=== PATIENT | female | born 1975 ===

== ENCOUNTER 2017-08-25 07:51 | Emergency (ER) | payer MEDICAID ==
[2017-08-25 08:08] VITALS: RESP 18; TEMP 97.7; BMI 46.7
[2017-08-25] MEDS ORDERED: Oxycodone/Acetaminophen 5/325 mg Tab PO STA (08:11)
--- NOTE | 2017-08-25 08:22 | ED PDOC ---
Arrival/HPI - General Chief Complaint: Lower Extremity Problem/Injury Time Seen by Provider: 08/25/17 07:55 Historian: Patient - History of Present Illness Narrative History of Present Illness (Text): 08/25/17 0820 pt p/w + 1 day onset of left lower back pain with pain radiating down her left leg, ending at the ankle; pt states she lifted something heavy 2 days ago but felt ok and went to the gym to do her daily routine yesterday morning when she went back to her car and suddenly felt a lower left back ache/cramp/pain that was initially tolerable; pt went to sleep last night and awoke this morning with severe/excruciating back pain, at most pain is 10/10; pt states she took 2 tabs of tylenol at home but it did not help; pt states mild left lower leg numbness/tingling; pt states no fever/chills/sweats, no cp/sob/palpitations, no abd pain, no n/v, no urinary/bowel changes, no rectal/vaginal numbness/tingling ; pt denied fall/trauma/sick contact, 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 ED for further eval pt states ambulating/and changing positions makes the pain worse pt is here for further eval pt's without other complaints PCP: Dr Chan pt is right hand dominate Time/Duration: 24 hours Symptom Onset: Sudden Symptom Course: Worsening Quality: Aching, Cramping Severity Level: 10, Severe Activities at Onset: Other (movement/changing position) Context: Walking, Exertion, Home Past Medical History - Provider Review Nursing Documentation Reviewed: Yes - Travel History Have you recently traveled outside [place] w/in the past 3 mons?: No - Past History Past History: No Previous - Infectious Disease Hx of Infectious Diseases: None - Tetanus Immunization Tetanus Immunization: Unknown - Reproductive Menopause: No Currently : Unknown (LMP: 1 week ago) - Past Medical History Past Medical History: No Previous - Cardiac Hx Cardiac Disorders: Yes Hx Hypertension: Yes - Pulmonary Hx Respiratory Disorders: No - Neurological Hx Neurological Disorder: No - HEENT Hx HEENT Disorder: No - Renal Hx Renal Disorder: Yes Hx Kidney Stones: Yes - Endocrine/Metabolic Hx Endocrine Disorders: No - Hematological/Oncological Hx Blood Disorders: No - Integumentary Hx Dermatological Disorder: No - Musculoskeletal/Rheumatological Hx Musculoskeletal Disorders: Yes Other/Comment: Sciatica - Gastrointestinal Hx Gastrointestinal Disorders: Yes Hx Fatty Liver Disease: Yes - Genitourinary/Gynecological Hx Genitourinary Disorders: No - Psychiatric Hx Psychophysiologic Disorder: No Hx Substance Use: No - Anesthesia Hx Anesthesia: No Family/Social History - Physician Review Nursing Documentation Reviewed: Yes Family/Social History: No Known Family HX Smoking Status: Never Smoked Hx Alcohol Use: No Hx Substance Use: No Hx Substance Use Treatment: No Allergies/Home Meds Allergies/Adverse Reactions: Allergies NSAIDS (Non-Steroidal Anti-Inflamma Allergy (Verified 08/25/17 08:03) RASH Review of Systems - Review of Systems Constitutional: Normal Eyes: Normal ENT: Normal Respiratory: Normal Cardiovascular: Normal Gastrointestinal: Normal Genitourinary Female: Normal Musculoskeletal: Back Pain Skin: Normal Neurological: Normal Endocrine: Normal Hemo/Lymphatic: Normal Psychiatric: Normal Physical Exam Vital Signs Reviewed: Yes Vital Signs Temp Pulse Resp BP Pulse Ox 08/25/17 10:04 70 18 145/96 H 98 08/25/17 08:05 97.7 F 88 18 122/97 H 98 Temperature: Afebrile Blood Pressure: Hypertensive (elevated DBP) Pulse: Regular Respiratory Rate: Normal Appearance: Positive for: Well-Appearing, Uncomfortable, Other (resting in bed, alert/awake, uncomfortable, mild distress due to back pain, cooperative, GCS = 15, oriented x 3) Pain Distress: Mild Mental Status: Positive for: Alert and Oriented X 3 - Systems Exam Head: Present: Atraumatic, Normocephalic Pupils: Present: PERRL, Other (visual field intact b/l, no nystagmus, no photophobia) Extroacular Muscles: Present: EOMI Conjunctiva: Present: Normal Ears: Present: Normal Mouth: Present: Moist Mucous Membranes, Normal Teeth, Other (uvula/tongue are midline, no exudate/lesions, no drooling/stridor) Pharnyx: Present: Normal Nose (External): Present: Atraumatic Nose (Internal): Present: Normal Inspection Neck: Present: Normal Range of Motion, Trachea Midline, Other (no step off, no midline tenderness). No: MIDLINE TENDERNESS Respiratory/Chest: Present: Clear to Auscultation, Good Air Exchange, Other ( CTA b/l, no w/r/r, no accessory muscle use noted). No: Respiratory Distress, Accessory Muscle Use Cardiovascular: Present: Regular Rate and Rhythm, Normal S1, S2. No: Murmurs Abdomen: Present: Normal Bowel Sounds, Other (well nourished/obese female, no focal tenderness, no zhang's sign, no mcburney's point tenderness) Back: Present: Normal Inspection, Pain with Leg Raise, Other (+ mild left lower paralumbar tenderness, no gross deformities noted, no midline tenderness/step off). No: CVA Tenderness, Midline Tenderness Upper Extremity: Present: Normal Inspection, Normal ROM, NORMAL PULSES, Neurovascularly Intact, Capillary Refill < 2s. No: Edema, Deformity Lower Extremity: Present: Normal Inspection, NORMAL PULSES, Neurovascularly Intact, Other (+ LEFT STRAIGHT LEG RAISING at 20-25 degrees; no alex's sign noted, no edema/swelling noted; no gross deformities noted; strength 5/5 grossly intact b/l; reflex +2/2 b/l; intact ROM) Neurological: Present: GCS=15, CN II-XII Intact, Speech Normal, Normal Sensory Function, Normal Cerebellar Funct Skin: Present: Warm, Normal Color, Other (cap refill < 1sec, no ulcerations, no petechiae, no rashes) Psychiatric: Present: Alert, Oriented x 3 Medical Decision Making ED Course and Treatment: 08/25/17 08:20 Impression: left leg pain i have consider all the differential diagnosis regarding pt's chief medical complaints/clinical findings, including but are not limited to: Left leg pain, atraumatic A/P: left leg pain - xray - pain control - suportive care - observe 08/25/17 0950 pt continues to have the same level of lower back pain, pt states her pain level is at 10/10 after the pain medications were given 08/25/17 10:50 pt felt much improved after the 2nd round of pain medications pt is able to move all limbs with ease pt is made aware of her medical results pt is encouraged min weight bearing and avoid prolonged ambulation pt will f/u as directed pt will be discharged home Re-evaluation Time: 09:50 Reassessment Condition: Unchanged - RAD Interpretation Narrative RAD Interpretations (Text): 08/25/17 10:03 slight compression noted to T11-12; no subluxation noted Physician Impression : Abnormal Written by Obey Quintero MD on 08/25/2017 09:53:36 Radiology Orders: 08/25/17 08:12 LS SPINE AP/LAT [RAD] Stat [employer] Software Developer: ED Physician - Medication Orders Current Medication Orders: Discontinued Medications Diazepam (Valium) 5 mg PO ONCE ONE PRN Reason: Protocol Stop: 08/25/17 08:11 Last Admin: 08/25/17 08:59 Dose: 5 mg Diazepam (Valium) 5 mg PO ONCE ONE PRN Reason: Protocol Stop: 08/25/17 09:56 Last Admin: 08/25/17 10:04 Dose: 5 mg Hydromorphone HCl (Dilaudid) 1 mg IM ONCE ONE Stop: 08/25/17 09:56 Last Admin: 08/25/17 10:03 Dose: 1 mg MAR Pain Assessment Document 08/25/17 10:03 SZA (Rec: 08/25/17 10:04 SZA [id number]) Pain Reassessment Is this a pain reassessment? No Sleep Is patient sleeping during reassessment? No Presence of Pain Presence of Pain Yes Pain Scale Used Pain Scale Used Numeric Description Description Intermittent Intensity of Pain at present 8 IM Administration Charges Document 08/25/17 10:03 SZA (Rec: 08/25/17 10:04 SZA [id number]) Charges for Administration # of IM Administrations 1 Ketorolac Tromethamine (Toradol) 15 mg IM STAT STA Stop: 08/25/17 08:11 Last Admin: 08/25/17 08:58 Dose: 15 mg MAR Pain Assessment Document 08/25/17 08:58 SZA (Rec: 08/25/17 08:59 SZA [id number]) Pain Reassessment Is this a pain reassessment? No Sleep Is patient sleeping during reassessment? No Presence of Pain Presence of Pain Yes Pain Scale Used Pain Scale Used Numeric Description Description Intermittent Intensity of Pain at present 10 IM Administration Charges Document 08/25/17 08:58 SZA (Rec: 08/25/17 08:59 SZA [id number]) Injection Site MAR Injection Site Left Deltoid Charges for Administration # of IM Administrations 1 Oxycodone/Acetaminophen (Percocet 5/325 Mg Tab) 1 tab PO STAT STA Stop: 08/25/17 08:12 Last Admin: 08/25/17 08:59 Dose: 1 tab MAR Pain Assessment Document 08/25/17 08:59 SOHAN (Rec: 08/25/17 08:59 SOHAN [id number]) Pain Reassessment Is this a pain reassessment? No Sleep Is patient sleeping during reassessment? No Presence of Pain Presence of Pain Yes Disposition/Present on Arrival - Present on Arrival Any Indicators Present on Arrival: No History of DVT/PE: No History of Uncontrolled Diabetes: No Urinary Catheter: No History of Decub. Ulcer: No History Surgical Site Infection Following: None - Disposition Have Diagnosis and Disposition been Completed?: Yes Diagnosis: Lower back pain, Sciatica of left side Disposition: HOME/ ROUTINE Disposition Time: 10:51 Patient Plan: Discharge Condition: STABLE Discharge Instructions (ExitCare): Sciatica, Low Back Pain in Adults, Sciatica Exercises Print Language: URUGUAYAN Additional Instructions: Make sure to see your doctor in 1-2 days DRINK PLENTY OF FLUIDS take your medications as prescribed AVOID heavy lifting AVOID prolonged standing/walking RETURN TO ED IF worse pain, cant breath, persistent vomiting, high fever >101- 102 for hours, altered behavior, slurr speech, facial changes, focal weakness ( arm/leg or both), unable to urinate, rectal/vaginal numbness/tingling, heavy/ persistent bleeding, passing out, chest pain, or other medical emergencies Prescriptions: diaZEpam [Valium] 5 mg PO TID PRN #15 tab PRN Reason: Muscle Spasm Naproxen [Naprosyn] 500 mg PO BID PRN #20 tab PRN Reason: Pain, Mild (1-3) oxyCODONE/Acetaminophen [Percocet 5/325 mg Tab] 1 tab PO QID PRN #15 tab PRN Reason: Pain, Moderate (4-7) Referrals: Colton Chan MD [Primary Care Provider] - Follow up with primary Eric Birmingham MD [Staff Provider] - Follow up with primary Forms: [employer] (Serbian), WORK NOTE
[2017-08-25] MEDS ORDERED: HYDROmorphone 1 mg/ml ISec IM ONE (09:55)
[2017-08-25 11:05] VITALS: BP 131/87; PULSE 75; O2SAT 95
--- NOTE | 2017-08-25 11:31 | RAD ---
Radiographs of the lumbar spine AP and lateral radiographs of the lumbar spine were obtained. Comparison: MRI of the lumbar spine from 04/18/2012 Findings: There is degenerative 5 mm anterior listhesis of L5 on S1. There is normal lumbar lordosis. There is no acute fracture, spondylolysis or spondylolisthesis. There is diffuse bone demineralization. There are age indeterminate but likely chronic mild compression deformities in the T11 and T12 vertebral bodies. There is multilevel degenerative disc disease with anterior spurring, reduced disc heights and multilevel facet arthropathy, worse at L5-S1. There are no pathologic soft tissue calcifications. Both sacroiliac joints are normal. Impression: No acute fracture in the lumbar spine. Age indeterminate mild osteoporotic compression deformities in the T11 and T12 vertebral bodies. Multilevel degenerative disc disease, worse at L5-S1.
== END 2017-08-25 11:43 | disposition home or self-care (01) ==
LOC: ED 07:51
DX: M54.42 Lumbago with sciatica, left side (principal); I10 Essential (primary) hypertension
CPT/HCPCS: 72100; 96372; 99285; J1170; J1885

== ENCOUNTER 2018-09-05 18:35 | Observation (INO) | payer MEDICAID ==
--- NOTE | 2018-09-05 19:00 | ED PDOC ---
Arrival/HPI - General Chief Complaint: Abnormal Labs Time Seen by Provider: 09/05/18 18:51 Historian: Patient - History of Present Illness Narrative History of Present Illness (Text): 09/05/18 18:57 43 y/o female, pmh including Menorrhagia, allergic to nsaid, send in by pmd Dr. Chan for symptomatic anemia. Pt. stated that she is at the end of her period, been having heavy menstrual bleeding for the past 2 weeks up to day, feeling fatigue and tired, no abdominal pain, no black color stool, no nausea/vomiting/diarrhea, no black color stool, no other medical or psychological complaints. Past Medical History - Provider Review Nursing Documentation Reviewed: Yes - Past History Past History: No Previous - Infectious Disease Hx of Infectious Diseases: None - Tetanus Immunization Tetanus Immunization: Unknown - Past Medical History Past Medical History: No Previous - Cardiac Hx Hypertension: Yes - Pulmonary Hx Respiratory Disorders: No - Neurological Hx Neurological Disorder: No - HEENT Hx HEENT Disorder: No - Renal Hx Renal Disorder: Yes Hx Kidney Stones: Yes - Endocrine/Metabolic Hx Endocrine Disorders: No - Hematological/Oncological Hx Anemia: Yes - Integumentary Hx Dermatological Disorder: No - Musculoskeletal/Rheumatological Hx Musculoskeletal Disorders: Yes Other/Comment: Sciatica - Gastrointestinal Hx Gastrointestinal Disorders: Yes Hx Fatty Liver Disease: Yes - Genitourinary/Gynecological Hx Genitourinary Disorders: No - Psychiatric Hx Psychophysiologic Disorder: No Hx Substance Use: No - Surgical History Hx Tubal Ligation: Yes - Anesthesia Hx Anesthesia: No Family/Social History - Physician Review Nursing Documentation Reviewed: Yes Family/Social History: Unknown Family HX Smoking Status: Never Smoked Hx Alcohol Use: No Hx Substance Use: No Hx Substance Use Treatment: No Allergies/Home Meds Allergies/Adverse Reactions: Allergies NSAIDS (Non-Steroidal Anti-Inflamma Allergy (Verified 09/05/18 18:45) RASH Review of Systems - Review of Systems Constitutional: Fatigue. absent: Fevers Eyes: absent: Vision Changes ENT: absent: Hearing Changes Respiratory: absent: SOB, Cough Cardiovascular: absent: Chest Pain Gastrointestinal: absent: Abdominal Pain, Diarrhea, Nausea, Vomiting Skin: absent: Rash, Pruritis, Skin Lesions Neurological: absent: Headache, Dizziness Psychiatric: absent: Anxiety, Depression, Suicidal Ideation Physical Exam Vital Signs Reviewed: Yes Vital Signs Temp Pulse Resp BP Pulse Ox 09/05/18 18:42 98.5 F 105 H 18 127/75 100 Temperature: Afebrile Blood Pressure: Normal Pulse: Tachycardic Respiratory Rate: Normal Appearance: Positive for: Well-Appearing, Non-Toxic, Comfortable Pain Distress: None Mental Status: Positive for: Alert and Oriented X 3 - Systems Exam Head: Present: Atraumatic, Normocephalic Pupils: Present: PERRL Extroacular Muscles: Present: EOMI Conjunctiva: Present: Normal Mouth: Present: Moist Mucous Membranes Neck: Present: Normal Range of Motion Respiratory/Chest: Present: Clear to Auscultation, Good Air Exchange. No: Respiratory Distress, Accessory Muscle Use Cardiovascular: Present: Regular Rate and Rhythm, Normal S1, S2. 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 No: Occult Blood, Rectal Tenderness, Gross Blood, Melena, Fissures, Nodule/Mass/Lesions Back: Present: Normal Inspection. No: CVA Tenderness, Midline Tenderness, Paraspinal Tenderness, Pain with Leg Raise, Decubitus Ulcer Upper Extremity: Present: Normal Inspection. No: Cyanosis, Edema Lower Extremity: Present: Normal Inspection. No: Edema Neurological: Present: GCS=15, CN II-XII Intact, Speech Normal, Motor Func Grossly Intact, Normal Cerebellar Funct, Memory Normal Skin: Present: Warm, Dry, Pale. No: Rashes Psychiatric: Present: Alert, Oriented x 3, Normal Insight, Normal Concentration Medical Decision Making ED Course and Treatment: 09/05/18 19:01 Anemia vs. GI bleed vs. Dehydration -Labs -Type and Screen -Chest xray -Guaiac -Observe and reassess 09/05/18 19:55 -Guaiac result is negative, yellow/brown color stool -Urine hcg is negative -EKG: ST @ 106 BPM, no ST elevation or depression, no T wave inversion. -Chest xray ER wet read: no active disease -Labs show no acute findings except hgb 5.3 and hct 20.8, 2 units of PRBC ordered with tylenol/benadryl. -UA show +UTI, IV rocephine ordered -I discussed with the labs/radiology result with the patient, she agreed to be transfused and admitted. -Case discussed with Dr. Rivas and the medical affairs specialist night hospitalist, discussed about the labs/radiology result and agreed on the admission/treatment plan. Dr. Rivas will continue the medical care. - Critical Care Critical Care Minutes: 30 minutes Critical Care Time: Unstable Narrative Critical Care (Text): 09/07/18 11:45 Severe anemia with need blood transfusion, tachycardia, will need blood transfusion and admission. - RAD Interpretation Radiology Orders: 09/05/18 18:50 CHEST PORTABLE [RAD] Stat - PA / OCULAR PATHOLOGIST / Resident Statement MD/DO has reviewed & agrees with the documentation as recorded. Disposition/Present on Arrival - Present on Arrival Any Indicators Present on Arrival: No History of DVT/PE: No History of Uncontrolled Diabetes: No Urinary Catheter: No History of Decub. Ulcer: No History Surgical Site Infection Following: None - Disposition Have Diagnosis and Disposition been Completed?: Yes Diagnosis: Symptomatic anemia, Menorrhagia, UTI (urinary tract infection) Disposition: HOSPITALIZED Disposition Time: 19:51 Patient Plan: Admission, Observation, Telemetry Condition: GUARDED
[2018-09-05 19:42] LABS: BASO # 0.07 K/mm3 (0.0-2.0); BASO % 0.6 % (0.0-3.0); EOS # 0.1 (0.0-0.7); EOS % 0.5 % (1.5-5.0); LYMPH # 3.1 (1.2-3.4); LYMPH % 25.6 % (22.0-35.0); MEAN CELL VOLUME 60.5 fl (80.0-105.0); MEAN CORPUSCULAR HEMOGLOBIN 15.4 pg (25.0-35.0); MEAN CORPUSCULAR HGB CONC 25.5 g/dl (31.0-37.0); MEAN PLATELET VOLUME 8.8 fl (7.0-11.0); MONO # 0.9 (0.1-0.6); MONO % 7.7 % (1.0-6.0); RBC 3.44 10^6/uL (3.5-6.1); RED CELL DISTRIBUTION WIDTH 20.6 % (11.5-14.5); URINE BILIRUBIN NEGATIVE (NEGATIVE); URINE BLOOD LARGE (NEGATIVE); URINE GLUCOSE (UA) NEGATIVE (NEGATIVE); URINE LEUKOCYTE ESTERASE SMALL Leu/uL (NEGATIVE); URINE PROTEIN NEGATIVE mg/dL (<30 mg/dL); URINE UROBILINOGEN 0.2 E.U./dL (<1 E.U./dL)
[2018-09-05 19:43] LABS: URINE APPEARANCE CLEAR (CLEAR); URINE COLOR YELLOW (YELLOW)
[2018-09-05 19:47] LABS: HEMOGLOBIN 5.3 g/dL (12.0-16.0)
[2018-09-05 19:48] LABS: ALB/GLOB RATIO 1.1 (1.1-1.8); ALBUMIN 3.9 g/dL (3.0-4.8); ALT/SGPT 10 U/L (7-56); AST/SGOT 21 U/L (14-36); BLOOD UREA NITROGEN 12 mg/dL (7-21); GFR NON-AFRICAN AMERICAN > 60; URINE RBC TNTC /hpf (0-2)
[2018-09-05] MEDS ORDERED: cefTRIAXone 1 gm 1 GM/100 ML BAG IVPB STA (19:51)
[2018-09-05] MEDS ORDERED: DiphenhydrAMINE 50 mg/ml Inj IVP STA (19:52)
--- NOTE | 2018-09-05 20:29 | CP.PCM.HP ---
<Jose AlbertosagartierraBrennon - Last Filed: 09/05/18 21:10> History of Present Illness - History of Present Illness History of Present Illness: PGY1 Medicine History and Physical Exam Note for Dr. Rivas Patient is a 43-year-old F with PMH menorrhagia, nephrolithiasis, tubal ligation 2 years ago, who was sent by PMD (Dr. Chan) for light-headedness and fatigue x1 month. Patient reports that during the last month she has experienced fatigue with walking 1 block or taking any stairs. Per patient, her LMP was August 19, and her symptoms have been exacerbated. Patient reports stated that she is at the end of her period, and has been having heavy menstrual bleeding for the past 2 weeks up to day. Patient says that her periods used to last 3-4 days per month, but since May 2018 her cycles have been lasting 2 weeks consistently. Patient otherwise denies abdominal pain, black stools, nausea/vomiting/diarrhea, hematemesis, dysuria, hematuria, urgency, fever, and/or chills. Of note patient's son is at bedside and has some training as a nurse. Per patient's son, he assumed the patient was suffering from iron-deficiency anemia, and gave the patient [id number] iron pills as a supplement. PMH: Menorrhagia, nephrolithiasis PSH: Tubal ligation 2 years ago Family Hx: Unknown Social Hx: Patient denies ETOH, tobacco, and/or recreational drugs Meds: Feosol 325mg PO daily, Phentermine HCl 37.5mg PO Allergies: NSAIDS PMD: Dr. Chan Present on Admission - Present on Admission Any Indicators Present on Admission: No History of DVT/PE: No History of Uncontrolled Diabetes: No Urinary Catheter: No Decubitus Ulcer Present: No Review of Systems - Review of Systems All systems: reviewed and no additional remarkable complaints except (as per HPI) Past Patient History - Infectious Disease Hx of Infectious Diseases: None - Tetanus Immunizations Tetanus Immunization: Unknown - Past Medical History & Family History Past Medical History?: No - Past Social History Smoking Status: Never Smoked - CARDIAC Hx Hypertension: Yes - PULMONARY Hx Respiratory Disorders: No - NEUROLOGICAL Hx Neurological Disorder: No - HEENT Hx HEENT Problems: No - RENAL Hx Chronic Kidney Disease: Yes Hx Kidney Stones: Yes - ENDOCRINE/METABOLIC Hx Endocrine Disorders: No - HEMATOLOGICAL/ONCOLOGICAL Hx Anemia: Yes - INTEGUMENTARY Hx Dermatological Problems: No - MUSCULOSKELETAL/RHEUMATOLOGICAL Hx Musculoskeletal Disorders: Yes Other/Comment: Sciatica - GASTROINTESTINAL Hx Gastrointestinal Disorders: Yes Hx Fatty Liver Disease: Yes - GENITOURINARY/GYNECOLOGICAL Hx Genitourinary Disorders: No - PSYCHIATRIC Hx Psychophysiologic Disorder: No Hx Substance Use: No - SURGICAL HISTORY Hx Tubal Ligation: Yes - ANESTHESIA Hx Anesthesia: No Meds Allergies/Adverse Reactions: Allergies Allergy/AdvReac Type Severity Reaction Status Date / Time NSAIDS (Non-Steroidal Allergy RASH Verified 09/05/18 18:45 Anti-Inflamma Physical Exam - Constitutional Appears: Non-toxic, No Acute Distress - Head Exam Head Exam: ATRAUMATIC, NORMAL INSPECTION, NORMOCEPHALIC - Eye Exam Eye Exam: EOMI, Normal appearance Additional comments: pale conjunctiva bilaterally - ENT Exam ENT Exam: Mucous Membranes Moist, Normal Exam - Neck Exam Neck exam: Positive for: Normal Inspection - Respiratory Exam Respiratory Exam: Clear to Auscultation Bilateral, NORMAL BREATHING PATTERN. absent: Decreased Breath Sounds, Rhonchi, Wheezes, Respiratory Distress, Stridor - Cardiovascular Exam Cardiovascular Exam: Tachycardia, +S1, +S2. absent: Diastolic murmur, Gallop - GI/Abdominal Exam GI & Abdominal Exam: Normal Bowel Sounds, Soft. absent: Distended, Firm, Guarding, Organomegaly, Rebound, Rigid, Tenderness - Extremities Exam Extremities exam: Positive for: full ROM, normal capillary refill, normal inspection, pedal pulses present - Back Exam Back exam: NORMAL INSPECTION - Neurological Exam Neurological exam: Alert, CN II-XII Intact, Oriented x3 - Psychiatric Exam Psychiatric exam: Normal Affect, Normal Mood - Skin Skin Exam: Dry, Intact, Pallor, Warm Results - Vital Signs Recent Vital Signs: Last Vital Signs Temp 98.5 F 09/05/18 18:42 Pulse 105 H 09/05/18 18:42 Resp 18 09/05/18 18:42 BP 127/75 09/05/18 18:42 Pulse Ox 100 09/05/18 18:42 - Labs Result Diagrams: 09/05/18 19:30 09/05/18 19:30 Labs: Laboratory Results - last 24 hr 09/05/18 09/05/18 09/05/18 19:30 19:30 19:30 WBC 12.0 H RBC 3.44 L Hgb 5.3 L* Hct 20.8 L* MCV 60.5 L MCH 15.4 L MCHC 25.5 L RDW 20.6 H Plt Count 447 MPV 8.8 Neut % (Auto) 65.6 Lymph % (Auto) 25.6 [place] % (Auto) 7.7 H Eos % (Auto) 0.5 L Baso % (Auto) 0.6 Lymph # (Auto) 3.1 [place] # (Auto) 0.9 H Eos # (Auto) 0.1 Baso # (Auto) 0.07 Absolute Neuts (auto) 7.86 H Sodium 139 Potassium 3.9 Chloride 103 Carbon Dioxide 23 Anion Gap 16 BUN 12 Creatinine 0.9 Est GFR ( Amer) > 60 Est GFR (Non-Af Amer) > 60 Random Glucose 95 Calcium 9.0 Total Bilirubin 0.3 AST 21 ALT 10 Alkaline Phosphatase 88 Total Protein 7.4 Albumin 3.9 Globulin 3.5 Albumin/Globulin Ratio 1.1 Urine Color Urine Appearance Urine pH Ur Specific [place] Urine Protein Urine Glucose (UA) Urine Ketones Urine Blood Urine Nitrate Urine Bilirubin Urine Urobilinogen Ur Leukocyte Esterase Urine RBC Urine WBC Ur Epithelial Cells BBK History Checked No verified bt 09/05/18 19:30 WBC RBC Hgb Hct MCV MCH MCHC RDW Plt Count MPV Neut % (Auto) Lymph % (Auto) [place] % (Auto) Eos % (Auto) Baso % (Auto) Lymph # (Auto) [place] # (Auto) Eos # (Auto) Baso # (Auto) Absolute Neuts (auto) Sodium Potassium Chloride Carbon Dioxide Anion Gap BUN Creatinine Est GFR ( Amer) Est GFR (Non-Af Amer) Random Glucose Calcium Total Bilirubin AST ALT Alkaline Phosphatase Total Protein Albumin Globulin Albumin/Globulin Ratio Urine Color Yellow Urine Appearance Clear Urine pH 6.0 Ur Specific [place] 1.010 Urine Protein Negative Urine Glucose (UA) Negative Urine Ketones Negative Urine Blood Large H Urine Nitrate Positive H Urine Bilirubin Negative Urine Urobilinogen 0.2 Ur Leukocyte Esterase Small H Urine RBC Tntc H Urine WBC 5 - 10 H Ur Epithelial Cells 10 - 12 H BBK History Checked Assessment & Plan - Assessment and Plan (Free Text) Assessment: Patient is a 43-year-old F with PMH menorrhagia, nephrolithiasis, tubal ligation 2 years ago, who was sent by PMD (Dr. Chan) for light-headedness and fatigue x1 month Symptomatic Anemia; microcytic; likely 2/2 iron deficiency anemia - Hgb 5.3, MCV low, RDW high - Type and Screen - Guaiac performed in ED (negative with yellow/brownish stool) - Urine beta Hcg negative - EKG: ST @ 106 BPM, no ST elevation or depression, no T wave inversion. - Chest xray: no active disease - 2 units of PRBC ordered with tylenol/benadryl to be administered prior to transfusion - Admit to remote tele - Repeat CBC once transfusion is completed - Protonix 40mg IVP Q12 - F/U iron studies - Monitor Abnormal Urinalysis in the setting of previous nephrolithiasis - Afebrile - Asymptomatic - IV rocephine given x1 in ED - no further antibiotics indicated at this time PPx: - DVT: SCD - GI: Protonix Discussed with Dr. Rob Dozier PGY1 <Terrell Rivas - Last Filed: 09/05/18 21:50> Results - Vital Signs Recent Vital Signs: Last Vital Signs Temp 98.5 F 09/05/18 18:42 Pulse 105 H 09/05/18 18:42 Resp 18 09/05/18 18:42 BP 127/75 09/05/18 18:42 Pulse Ox 100 09/05/18 18:42 - Labs Result Diagrams: 09/05/18 19:30 09/05/18 19:30 Labs: Laboratory Results - last 24 hr 09/05/18 09/05/18 09/05/18 19:30 19:30 19:30 WBC 12.0 H RBC 3.44 L Hgb 5.3 L* Hct 20.8 L* MCV 60.5 L MCH 15.4 L MCHC 25.5 L RDW 20.6 H Plt Count 447 MPV 8.8 Neut % (Auto) 65.6 Lymph % (Auto) 25.6 [place] % (Auto) 7.7 H Eos % (Auto) 0.5 L Baso % (Auto) 0.6 Lymph # (Auto) 3.1 [place] # (Auto) 0.9 H Eos # (Auto) 0.1 Baso # (Auto) 0.07 Absolute Neuts (auto) 7.86 H Sodium 139 Potassium 3.9 Chloride 103 Carbon Dioxide 23 Anion Gap 16 BUN 12 Creatinine 0.9 Est GFR ( Amer) > 60 Est GFR (Non-Af Amer) > 60 Random Glucose 95 Calcium 9.0 Iron TIBC % Saturation Total Bilirubin 0.3 AST 21 ALT 10 Alkaline Phosphatase 88 Total Protein 7.4 Albumin 3.9 Globulin 3.5 Albumin/Globulin Ratio 1.1 Urine Color Urine Appearance Urine pH Ur Specific [place] Urine Protein Urine Glucose (UA) Urine Ketones Urine Blood Urine Nitrate Urine Bilirubin Urine Urobilinogen Ur Leukocyte Esterase Urine RBC Urine WBC Ur Epithelial Cells Blood Type Cancelled Blood Type Confirm Antibody Screen Cancelled Crossmatch BBK History Checked Cancelled 09/05/18 09/05/18 09/05/18 19:30 19:30 20:00 WBC RBC Hgb Hct MCV MCH MCHC RDW Plt Count MPV Neut % (Auto) Lymph % (Auto) [place] % (Auto) Eos % (Auto) Baso % (Auto) Lymph # (Auto) [place] # (Auto) Eos # (Auto) Baso # (Auto) Absolute Neuts (auto) Sodium Potassium Chloride Carbon Dioxide Anion Gap BUN Creatinine Est GFR ( Amer) Est GFR (Non-Af Amer) Random Glucose Calcium Iron 16 L TIBC 426 % Saturation 4 L Total Bilirubin AST ALT Alkaline Phosphatase Total Protein Albumin Globulin Albumin/Globulin Ratio Urine Color Yellow Urine Appearance Clear Urine pH 6.0 Ur Specific [place] 1.010 Urine Protein Negative Urine Glucose (UA) Negative Urine Ketones Negative Urine Blood Large H Urine Nitrate Positive H Urine Bilirubin Negative Urine Urobilinogen 0.2 Ur Leukocyte Esterase Small H Urine RBC Tntc H Urine WBC 5 - 10 H Ur Epithelial Cells 10 - 12 H Blood Type O POSITIVE Blood Type Confirm Antibody Screen Negative Crossmatch See Detail BBK History Checked No verified bt 09/05/18 20:00 WBC RBC Hgb Hct MCV MCH MCHC RDW Plt Count MPV Neut % (Auto) Lymph % (Auto) [place] % (Auto) Eos % (Auto) Baso % (Auto) Lymph # (Auto) [place] # (Auto) Eos # (Auto) Baso # (Auto) Absolute Neuts (auto) Sodium Potassium Chloride Carbon Dioxide Anion Gap BUN Creatinine Est GFR ( Amer) Est GFR (Non-Af Amer) Random Glucose Calcium Iron TIBC % Saturation Total Bilirubin AST ALT Alkaline Phosphatase Total Protein Albumin Globulin Albumin/Globulin Ratio Urine Color Urine Appearance Urine pH Ur Specific [place] Urine Protein Urine Glucose (UA) Urine Ketones Urine Blood Urine Nitrate Urine Bilirubin Urine Urobilinogen Ur Leukocyte Esterase Urine RBC Urine WBC Ur Epithelial Cells Blood Type Blood Type Confirm O POSITIVE Antibody Screen Crossmatch BBK History Checked Attending/Attestation - Attestation I have personally seen and examined this patient.: Yes I have fully participated in the care of the patient.: Yes I have reviewed all pertinent clinical information: Yes Notes (Text): 09/05/18 21:46 Patient was seen when she was in cubicle 13 in the ER. Medical record was reviewed. Agree with history, physical examination, assessment and plan. Gives history of hypertension but not being on any medication for that,family history of DM and arthritis, GERD, loss of weight from 290 lb to 242 in about a year(Voluntary),palpitation on & of for past month.
[2018-09-05 21:26] LABS: IRON 16 ug/dL (45-180)
[2018-09-05 21:35] LABS: % IRON SATURATION 4 % (20-55); TOTAL IRON BINDING CAPACITY 426 ug/dL (265-497)
[2018-09-06 01:28] VITALS: RESP 18
[2018-09-06 03:31] VITALS: BMI 39.0
[2018-09-06 03:33] VITALS: O2SAT 97
[2018-09-06 06:58] LABS: BASO # 0.05 K/mm3 (0.0-2.0); BASO % 0.5 % (0.0-3.0); EOS # 0.1 (0.0-0.7); EOS % 1.2 % (1.5-5.0); LYMPH # 2.7 (1.2-3.4); MEAN CELL VOLUME 64.7 fl (80.0-105.0); MEAN CORPUSCULAR HEMOGLOBIN 17.8 pg (25.0-35.0); MEAN CORPUSCULAR HGB CONC 27.5 g/dl (31.0-37.0); MONO # 0.7 (0.1-0.6); MONO % 7.6 % (1.0-6.0); RBC 3.77 10^6/uL (3.5-6.1); RED CELL DISTRIBUTION WIDTH 24.7 % (11.5-14.5); WHITE BLOOD COUNT 9.8 10^3/uL (4.5-11.0)
[2018-09-06 07:48] LABS: HEMOGLOBIN 6.7 g/dL (12.0-16.0)
[2018-09-06 08:06] LABS: ALB/GLOB RATIO 1.1 (1.1-1.8); ALBUMIN 3.4 g/dL (3.0-4.8); ALT/SGPT 9 U/L (7-56); AST/SGOT 25 U/L (14-36); BLOOD UREA NITROGEN 10 mg/dL (7-21); CALCIUM 8.7 mg/dL (8.4-10.5); GFR NON-AFRICAN AMERICAN > 60
[2018-09-06 12:06] VITALS: BP 119/67; TEMP 98.9
[2018-09-06 12:36] LABS: FERRITIN 4.1 ng/mL
--- NOTE | 2018-09-06 14:10 | RAD ---
Date of service: 09/05/2018 HISTORY: medical clearance COMPARISON: No prior. TECHNIQUE: 1 view obtained. FINDINGS: LUNGS: Poor inspiration with low lung volumes, crowded bronchovascular markings and minor bibasilar atelectasis. PLEURA: No significant pleural effusion identified, no pneumothorax apparent. CARDIOVASCULAR: No aortic atherosclerotic calcification present. Normal cardiac size. No pulmonary vascular congestion. OSSEOUS STRUCTURES: No significant abnormalities. VISUALIZED UPPER ABDOMEN: Normal. OTHER FINDINGS: None. IMPRESSION: Poor inspiration with low lung volumes, crowded bronchovascular markings and minor bibasilar atelectasis.
[2018-09-06 15:17] VITALS: PULSE 98
--- NOTE | 2018-09-06 16:39 | CP.PCM.DIS ---
<Arnold Moss - Last Filed: 09/06/18 17:05> Provider - Provider Date of Admission: 09/05/18 19:57 Attending physician: Shanita Regalado MD Primary care physician: Dr. Chan Consults: None Time Spent in preparation of Discharge (in minutes): 35 Hospital Course - Lab Results Lab Results: Most Recent Lab Values WBC 9.8 10^3/uL (4.5-11.0) 09/06/18 06:00 RBC 3.77 10^6/uL (3.5-6.1) 09/06/18 06:00 Hgb 8.0 g/dL (12.0-16.0) L 09/06/18 13:30 Hct 27.9 % (36.0-48.0) L 09/06/18 13:30 MCV 64.7 fl (80.0-105.0) L D 09/06/18 06:00 MCH 17.8 pg (25.0-35.0) L 09/06/18 06:00 MCHC 27.5 g/dl (31.0-37.0) L 09/06/18 06:00 RDW 24.7 % (11.5-14.5) H 09/06/18 06:00 Plt Count 399 10^3/uL (120.0-450.0) 09/06/18 06:00 MPV 9.0 fl (7.0-11.0) 09/06/18 06:00 Neut % (Auto) 62.7 % (50.0-68.0) 09/06/18 06:00 Lymph % (Auto) 28.0 % (22.0-35.0) 09/06/18 06:00 [place] % (Auto) 7.6 % (1.0-6.0) H 09/06/18 06:00 Eos % (Auto) 1.2 % (1.5-5.0) L 09/06/18 06:00 Baso % (Auto) 0.5 % (0.0-3.0) 09/06/18 06:00 Lymph # (Auto) 2.7 (1.2-3.4) 09/06/18 06:00 [place] # (Auto) 0.7 (0.1-0.6) H 09/06/18 06:00 Eos # (Auto) 0.1 (0.0-0.7) 09/06/18 06:00 Baso # (Auto) 0.05 K/mm3 (0.0-2.0) 09/06/18 06:00 Absolute Neuts (auto) 6.13 (1.4-6.5) 09/06/18 06:00 Sodium 137 mmol/L (132-148) 09/06/18 07:00 Potassium 3.8 mmol/L (3.6-5.0) 09/06/18 07:00 Chloride 103 mmol/L (98-107) 09/06/18 07:00 Carbon Dioxide 26 mmol/L (21-33) 09/06/18 07:00 Anion Gap 11 (10-20) 09/06/18 07:00 BUN 10 mg/dL (7-21) 09/06/18 07:00 Creatinine 0.9 mg/dl (0.7-1.2) 09/06/18 07:00 Est GFR ( Amer) > 60 09/06/18 07:00 Est GFR (Non-Af Amer) > 60 09/06/18 07:00 Random Glucose 79 mg/dL (70-110) 09/06/18 07:00 Calcium 8.7 mg/dL (8.4-10.5) 09/06/18 07:00 Iron 16 ug/dL (45-180) L 09/05/18 20:00 TIBC 426 ug/dL (265-497) 09/05/18 20:00 % Saturation 4 % (20-55) L 09/05/18 20:00 Transferrin 299.59 mg/dL (206-381) 09/05/18 19:30 Ferritin 4.1 ng/mL 09/05/18 19:30 Total Bilirubin 0.5 mg/dL (0.2-1.3) 09/06/18 07:00 AST 25 U/L (14-36) 09/06/18 07:00 ALT 9 U/L (7-56) 09/06/18 07:00 Alkaline Phosphatase 86 U/L (38-126) 09/06/18 07:00 Total Protein 6.5 g/dL (5.8-8.3) 09/06/18 07:00 Albumin 3.4 g/dL (3.0-4.8) 09/06/18 07:00 Globulin 3.1 gm/dL 09/06/18 07:00 Albumin/Globulin Ratio 1.1 (1.1-1.8) 09/06/18 07:00 Urine Color Yellow (YELLOW) 09/05/18 19:30 Urine Appearance Clear (CLEAR) 09/05/18 19:30 Urine pH 6.0 (4.7-8.0) 09/05/18 19:30 Ur Specific [place] 1.010 (1.005-1.035) 09/05/18 19:30 Urine Protein Negative mg/dL (<30 mg/dL) 09/05/18 19:30 Urine Glucose (UA) Negative mg/dL (NEGATIVE) 09/05/18 19:30 Urine Ketones Negative mg/dL (NEGATIVE) 09/05/18 19:30 Urine Blood Large (NEGATIVE) H 09/05/18 19:30 Urine Nitrate Positive (NEGATIVE) H 09/05/18 19:30 Urine Bilirubin Negative (NEGATIVE) 09/05/18 19:30 Urine Urobilinogen 0.2 E.U./dL (<1 E.U./dL) 09/05/18 19:30 Ur Leukocyte Esterase Small [place]nn/uL (NEGATIVE) H 09/05/18 19:30 Urine RBC Tntc /hpf (0-2) H 09/05/18 19:30 Urine WBC 5 - 10 /hpf (0-6) H 09/05/18 19:30 Ur Epithelial Cells 10 - 12 /hpf (0-5) H 09/05/18 19:30 Blood Type O POSITIVE 09/05/18 19:30 Blood Type Confirm O POSITIVE 09/05/18 20:00 Antibody Screen Negative 09/05/18 19:30 Crossmatch See Detail 09/05/18 19:30 BBK History Checked No verified bt 09/05/18 19:30 - Hospital Course Hospital Course: Arnold Moss, PGY-1 Discharge Summary for Hospitalist Service 43 year old F with PMHx menorrhagia, nephrolithiasis, tubal ligation 2 years ago, who was sent by PMD (Dr. Chan) for light-headedness and fatigue of 1 month duration. Patient was evaluated for symptomatic Anemia. Patient was found to have microcytic anemia, likely 2/2 iron deficiency anemia. Type and Screen was performed. Guaiac performed in ED was negative with yellow/brownish stool. EKG on admission showed Sinus Tachycardia @ 106 BPM, no ST elevation or depression, no T wave inversions. Chest xray showed no active disease. Tylenol/benadryl was administered prior to transfusion. Hgb was found to be 5.3, and received 2 units PRBC. Repeat hemoglobin after 2 units was 6.7. A third unit was ordered, after which Hgb was 8.0. Urine beta Hcg negative. Fe studies showed Ferritin of 4 and Fe of 16. Patient received IV Fe sucrose one dose. Patient was then walked around unit to ensure gait stability. Patient was found to have abnormal urinalysis in the setting of previous nephrolithiasis. Patient remained afebrile and asymptomatic without dysuria and frequency. Patient was recommended to follow up with PMD and OBGYN for vaginal bleeding. Patient reported decreased lethargy and was in agreement to go home and be picked up by her son. Questions regarding hospital course and follow up were answered in detail and to patient satisfaction with family members at bedside. For complete details of hospital course, please refer to EMR. Patient seen, case reviewed and plan approved by Dr. Regalado. Discharge Exam - Additional Findings Additional findings: - Constitutional Appears: Non-toxic, No Acute Distress - Head Exam Head Exam: ATRAUMATIC, NORMAL INSPECTION, NORMOCEPHALIC - Eye Exam Eye Exam: EOMI, Normal appearance Additional comments: pale conjunctiva bilaterally - ENT Exam ENT Exam: Mucous Membranes Moist, Normal Exam - Neck Exam Neck exam: Positive for: Normal Inspection - Respiratory Exam Respiratory Exam: Clear to Auscultation Bilateral, NORMAL BREATHING PATTERN. absent: Decreased Breath Sounds, Rhonchi, Wheezes, Respiratory Distress, Stridor - Cardiovascular Exam Cardiovascular Exam: RRR, +S1, +S2. absent: Diastolic murmur, Gallop, Tachycardia - GI/Abdominal Exam GI & Abdominal Exam: Normal Bowel Sounds, Soft. absent: Distended, Firm, Guarding, Organomegaly, Rebound, Rigid, Tenderness - Extremities Exam Extremities exam: Positive for: full ROM, normal capillary refill, normal inspection, pedal pulses present - Back Exam Back exam: NORMAL INSPECTION - Neurological Exam Neurological exam: Alert, CN II-XII Intact, Oriented x3 - Psychiatric Exam Psychiatric exam: Normal Affect, Normal Mood - Skin Skin Exam: Dry, Intact, Warm, Decreased pallor Discharge Plan - Discharge Medications Prescriptions: Ferrous Sulfate [Feosol] 325 mg PO DAILY #30 tab - Follow Up Plan Condition: GUARDED Disposition: HOME/ ROUTINE Instructions: Anemia Caused by Low Iron, Adult (DC) Additional Instructions: Please follow up with Dr. Chan within 3-5 days. Please follow up with your MAT CUTTER of your choice within 1 week for ultrasound and further workup of vaginal bleeding. If not, Dr. Maki has been listed as a referral for you. You have been given script to continue taking your Iron pills. We recommend you stop taking Phentermine due to high side effect profile. Should symptoms worsen, please visit nearest emergency department. Referrals: Christy Maki MD [Staff Provider] - <Shanita Regalado - Last Filed: 09/06/18 20:23> Provider - Provider Date of Admission: 09/05/18 19:57 Attending physician: Shanita Regalado MD Hospital Course - Lab Results Lab Results: Most Recent Lab Values WBC 9.8 10^3/uL (4.5-11.0) 09/06/18 06:00 RBC 3.77 10^6/uL (3.5-6.1) 09/06/18 06:00 Hgb 8.0 g/dL (12.0-16.0) L 09/06/18 13:30 Hct 27.9 % (36.0-48.0) L 09/06/18 13:30 MCV 64.7 fl (80.0-105.0) L D 09/06/18 06:00 MCH 17.8 pg (25.0-35.0) L 09/06/18 06:00 MCHC 27.5 g/dl (31.0-37.0) L 09/06/18 06:00 RDW 24.7 % (11.5-14.5) H 09/06/18 06:00 Plt Count 399 10^3/uL (120.0-450.0) 09/06/18 06:00 MPV 9.0 fl (7.0-11.0) 09/06/18 06:00 Neut % (Auto) 62.7 % (50.0-68.0) 09/06/18 06:00 Lymph % (Auto) 28.0 % (22.0-35.0) 09/06/18 06:00 [place] % (Auto) 7.6 % (1.0-6.0) H 09/06/18 06:00 Eos % (Auto) 1.2 % (1.5-5.0) L 09/06/18 06:00 Baso % (Auto) 0.5 % (0.0-3.0) 09/06/18 06:00 Lymph # (Auto) 2.7 (1.2-3.4) 09/06/18 06:00 [place] # (Auto) 0.7 (0.1-0.6) H 09/06/18 06:00 Eos # (Auto) 0.1 (0.0-0.7) 09/06/18 06:00 Baso # (Auto) 0.05 K/mm3 (0.0-2.0) 09/06/18 06:00 Absolute Neuts (auto) 6.13 (1.4-6.5) 09/06/18 06:00 Sodium 137 mmol/L (132-148) 09/06/18 07:00 Potassium 3.8 mmol/L (3.6-5.0) 09/06/18 07:00 Chloride 103 mmol/L (98-107) 09/06/18 07:00 Carbon Dioxide 26 mmol/L (21-33) 09/06/18 07:00 Anion Gap 11 (10-20) 09/06/18 07:00 BUN 10 mg/dL (7-21) 09/06/18 07:00 Creatinine 0.9 mg/dl (0.7-1.2) 09/06/18 07:00 Est GFR ( Amer) > 60 09/06/18 07:00 Est GFR (Non-Af Amer) > 60 09/06/18 07:00 Random Glucose 79 mg/dL (70-110) 09/06/18 07:00 Calcium 8.7 mg/dL (8.4-10.5) 09/06/18 07:00 Iron 16 ug/dL (45-180) L 09/05/18 20:00 TIBC 426 ug/dL (265-497) 09/05/18 20:00 % Saturation 4 % (20-55) L 09/05/18 20:00 Transferrin 299.59 mg/dL (206-381) 09/05/18 19:30 Ferritin 4.1 ng/mL 09/05/18 19:30 Total Bilirubin 0.5 mg/dL (0.2-1.3) 09/06/18 07:00 AST 25 U/L (14-36) 09/06/18 07:00 ALT 9 U/L (7-56) 09/06/18 07:00 Alkaline Phosphatase 86 U/L (38-126) 09/06/18 07:00 Total Protein 6.5 g/dL (5.8-8.3) 09/06/18 07:00 Albumin 3.4 g/dL (3.0-4.8) 09/06/18 07:00 Globulin 3.1 gm/dL 09/06/18 07:00 Albumin/Globulin Ratio 1.1 (1.1-1.8) 09/06/18 07:00 Urine Color Yellow (YELLOW) 09/05/18 19:30 Urine Appearance Clear (CLEAR) 09/05/18 19:30 Urine pH 6.0 (4.7-8.0) 09/05/18 19:30 Ur Specific [place] 1.010 (1.005-1.035) 09/05/18 19:30 Urine Protein Negative mg/dL (<30 mg/dL) 09/05/18 19:30 Urine Glucose (UA) Negative mg/dL (NEGATIVE) 09/05/18 19:30 Urine Ketones Negative mg/dL (NEGATIVE) 09/05/18 19:30 Urine Blood Large (NEGATIVE) H 09/05/18 19:30 Urine Nitrate Positive (NEGATIVE) H 09/05/18 19:30 Urine Bilirubin Negative (NEGATIVE) 09/05/18 19:30 Urine Urobilinogen 0.2 E.U./dL (<1 E.U./dL) 09/05/18 19:30 Ur Leukocyte Esterase Small [place]/uL (NEGATIVE) H 09/05/18 19:30 Urine RBC Tntc /hpf (0-2) H 09/05/18 19:30 Urine WBC 5 - 10 /hpf (0-6) H 09/05/18 19:30 Ur Epithelial Cells 10 - 12 /hpf (0-5) H 09/05/18 19:30 Blood Type O POSITIVE 09/05/18 19:30 Blood Type Confirm O POSITIVE 09/05/18 20:00 Antibody Screen Negative 09/05/18 19:30 Crossmatch See Detail 09/05/18 19:30 BBK History Checked No verified bt 09/05/18 19:30 Attending/Attestation - Attestation I have personally seen and examined this patient.: Yes I have fully participated in the care of the patient.: Yes I have reviewed all pertinent clinical information, including history, physical exam and plan: Yes
--- NOTE | 2018-09-07 07:18 | CARD ---
APPROVED REPORT Date of service: 09/05/2018 EKG Measurement Heart [id number] <Conclusion> Sinus tachycardia Otherwise normal ECG
== END 2018-09-06 17:50 | disposition home or self-care (01) ==
LOC: ED 18:35 → ERH 19:57 → 2RNO 23:18
PROVIDERS: ADMIT Internal Medicine; ATTEND Internal Medicine
DX: D50.9 Iron deficiency anemia, unspecified (principal); N39.0 Urinary tract infection, site not specified; N92.0 Excessive and frequent menstruation with regular cycle; I10 Essential (primary) hypertension; R00.0 Tachycardia, unspecified; Z87.442 Personal history of urinary calculi
CPT/HCPCS: 36415; 36430; 71045; 80053; 81001; 81025; 82728; 84466; 85014; 85018; 85025; 86850; 86900; 86920; 87086; 93005; 96374; 96375; 99285; C9113; G0378; J0696; J1756; P9016